=== PATIENT | female | born 1960 | race African-American/Black ===

== ENCOUNTER 2016-10-19 06:30 | Inpatient (IN) | payer MEDICAID ==
[2016-10-19] VITALS (14 sets, daily range): BP systolic 106–166; BP diastolic 57–82
[~2016-10-19] VITALS: Ht 170.2 cm; Wt 84.5 kg
[2016-10-19] MEDS ORDERED: METF500T4 PO (06:37)
[2016-10-19] MEDS ORDERED: AMLO-512 PO (06:37)
[2016-10-19] MEDS ORDERED: ASPI-556 PO (06:37)
[2016-10-19] MEDS ORDERED: IPRATROPIUM BROMIDE 0.5 MG/2.5 ML NEB SOLUTION NEB ONE (06:45)
[2016-10-19] MEDS ORDERED: ALBUTEROL SULFATE 2.5 MG/0.5 ML NEB SOLUTION NEB ONE (06:45)
[2016-10-19 06:47] LABS: GLUCOSE,POINT OF CARE 87 MG/DL (70-110)
[2016-10-19 07:57] LABS: GLUCOSE,POINT OF CARE 87 MG/DL (70-110)
[2016-10-19 08:09] LABS: ANION GAP 14 mmol/L (8-16); CALCIUM, TOTAL 8.7 mg/dL (8.8-10.5); CARBON DIOXIDE 24 mmol/L (22-29); CHLORIDE 104 mmol/L (98-107); GLOMERULAR FILTR. RATE CALC > 60 mL/min (>60); POTASSIUM 3.8 mmol/L (3.5-5.1); SODIUM SERUM 142 mmol/L (136-145); UREA NITROGEN, BLOOD 19 mg/dL (7-18)
[2016-10-19 08:16] LABS: ALANINE AMINOTRANSFERASE 11 U/L (12-78); ALBUMIN 2.7 g/dL (3.4-5.0); ASPARTATE AMINOTRANSFERASE 35 U/L (15-37); BILIRUBIN,TOTAL 0.6 mg/dL (0.1-1.0); CREATINE KINASE, TOTAL 28 U/L (26-192); TOTAL PROTEIN, SERUM 7.1 g/dL (6.4-8.2)
[2016-10-19 08:36] LABS: BASOPHILS # (AUTO) 0.01 K/uL (0.00-0.20); BASOPHILS % (AUTO) 0.2 % (0.0-2.0); EOSINOPHILS # (AUTO) 0.43 K/uL (0.00-0.70); EOSINOPHILS % (AUTO) 6.02 % (1.0-6.0); LYMPHOCYTES # (AUTO) 0.7 K/uL (1.0-4.8); LYMPHOCYTES % (AUTO) 9.6 % (22.0-44.0); MEAN CORPUSCULAR HEMOGLOBIN 40.2 pg (26.0-34.0); MEAN CORPUSCULAR HGB CONC 32.5 G/dL (31.0-37.0); MEAN CORPUSCULAR VOLUME 124 fL (80-100); MONOCYTES # (AUTO) 0.2 K/uL (0.1-1.0); NEUTROPHILS # (AUTO) 5.9 K/uL (1.8-7.7); NEUTROPHILS % (AUTO) 81.3 % (40.0-70.0); PLATELET COUNT (AUTO) 265 K/uL (150-450); RED BLOOD CELL COUNT(AUTO) 1.44 MIL/uL (4.00-5.20); RED CELL DISTRIBUTION WIDTH 24.6 % (11.5-14.5); WHITE BLOOD COUNT (AUTO) 7.2 K/uL (4.5-11.0)
[2016-10-19 08:40] LABS: B-TYPE NATRIURETIC PEPTIDE 36 pg/mL (0-100)
[2016-10-19 08:44] LABS: HEMOGLOBIN 5.8 g/dL (12.0-16.0)
[2016-10-19 08:45] LABS: HEMATOCRIT 17.8 % (36-46)
[2016-10-19 09:06] LABS: GLUCOSE,POINT OF CARE 129 MG/DL (70-110)
[2016-10-19 09:33] LABS: IRON, SERUM 97 mcg/dL (50-175); TOTAL IRON BINDING CAPACITY 227 mcg/dL (250-450)
[2016-10-19 09:49] LABS: FERRITIN 530 ng/mL (8-252)
[2016-10-19 10:33] LABS: VITAMIN B12 LEVEL 222 pg/mL (211-911)
[2016-10-19] MEDS ORDERED: SODIUM CHLORIDE 0.9% 250 ML IV ONE ×2 (10:49→14:27)
[2016-10-19] MEDS ORDERED: ACETAMINOPHEN 325 MG TABLET PO PRN (11:15)
[2016-10-19] MEDS ORDERED: BARIUM SULFATE 0.1% SUSPENSION 450 ML BOTTLE PO ONE (11:15)
[2016-10-19] MEDS ORDERED: ONDANSETRON HCL 4 MG/2 ML VIAL IVP PRN (11:15)
[2016-10-19] MEDS ORDERED: SODIUM CHLORIDE 0.9% 100 ML ONE (11:25)
[2016-10-19] MEDS ORDERED: IOVERSOL 350 MG/ML 150 ML VIAL ONE (11:26)
[2016-10-19] MEDS ORDERED: CYANOCOBALAMIN 1,000 MCG/ML VIAL SQ ONE (11:30)
[2016-10-19] MEDS ORDERED: FOLIC ACID 5 MG/ML 10 ML VIAL IVP ONE (11:30)
[2016-10-19] MEDS: PANTOPRAZOLE SODIUM 40 MG/VIAL IVP SCH ×2 (11:43→20:43)
[2016-10-19 12:22] LABS: GLUCOSE,POINT OF CARE 99 MG/DL (70-110)
[2016-10-19 14:21] LABS: PROTHROMBIN TIME 10.2 SEC (9.4-11.6)
[2016-10-19] MEDS ORDERED: HEPARIN SODIUM 25000 UNITS/D5W 250 ML IV PRN (17:27)
[2016-10-19] MEDS ORDERED: HEPARIN SODIUM,PORCINE 5,000 UNITS/ML VIAL IVP PRN ×3 (17:30→18:00)
[2016-10-19 17:53] LABS: BASOPHILS % (AUTO) 0.2 % (0.0-2.0); EOSINOPHILS % (AUTO) 6.4 % (1.0-6.0); HEMATOCRIT 21.2 % (36-46); HEMOGLOBIN 7.2 g/dL (12.0-16.0); LYMPHOCYTES # (AUTO) 0.9 K/uL (1.0-4.8); LYMPHOCYTES % (AUTO) 12.6 % (22.0-44.0); MEAN CORPUSCULAR HEMOGLOBIN 36.2 pg (26.0-34.0); MEAN CORPUSCULAR HGB CONC 33.8 G/dL (31.0-37.0); MEAN CORPUSCULAR VOLUME 107 fL (80-100); MONOCYTES # (AUTO) 0.3 K/uL (0.1-1.0); MONOCYTES % (AUTO) 3.6 % (2.0-9.0); NEUTROPHILS # (AUTO) 5.5 K/uL (1.8-7.7); NEUTROPHILS % (AUTO) 77.2 % (40.0-70.0); PLATELET COUNT (AUTO) 232 K/uL (150-450); RED BLOOD CELL COUNT(AUTO) 1.98 MIL/uL (4.00-5.20); RED CELL DISTRIBUTION WIDTH 30.5 % (11.5-14.5); WHITE BLOOD COUNT (AUTO) 7.1 K/uL (4.5-11.0)
[2016-10-19 18:04] LABS: PROTHROMBIN TIME 10.7 SEC (9.4-11.6)
[2016-10-19] MEDS: HEPARIN SODIUM 25000 UNITS/D5W 250 ML IV PRN (18:17)
[2016-10-19 18:21] LABS: RBC MORPHOLOGY COMMENT ABNORMAL RBC MORPH
[2016-10-19 20:21] LABS: ANION GAP 10 mmol/L (8-16); CALCIUM, TOTAL 8.4 mg/dL (8.8-10.5); CARBON DIOXIDE 24 mmol/L (22-29); CHLORIDE 102 mmol/L (98-107); CREATININE 1.11 mg/dL (0.60-1.30); GLOMERULAR FILTR. RATE CALC > 60 mL/min (>60); SODIUM SERUM 136 mmol/L (136-145); UREA NITROGEN, BLOOD 18 mg/dL (7-18)
[2016-10-19 20:27] LABS: ALANINE AMINOTRANSFERASE 12 U/L (12-78); ALBUMIN 2.5 g/dL (3.4-5.0); ASPARTATE AMINOTRANSFERASE 31 U/L (15-37); BILIRUBIN,TOTAL 0.8 mg/dL (0.1-1.0); TOTAL PROTEIN, SERUM 6.5 g/dL (6.4-8.2)
[2016-10-19] MEDS: NICOTINE 14 MG/24 HOUR PATCH TD SCH (20:28)
[2016-10-19 20:29] LABS: IRON, SERUM 183 mcg/dL (50-175); TOTAL IRON BINDING CAPACITY 187 mcg/dL (250-450)
[2016-10-19] MEDS: TIOTROPIUM BROMIDE 18 MCG/INH HANDIHALER [5] IH SCH (20:35)
[2016-10-19] MEDS: DOCUSATE SODIUM 100 MG CAPSULE PO SCH (20:43)
[2016-10-19] MEDS: BUDESONIDE 0.5 MG/2 ML NEB SOLUTION NEB SCH (21:12)
[2016-10-20] VITALS (10 sets, daily range): BP systolic 131–154; BP diastolic 65–87
[2016-10-20] MEDS: HEPARIN SODIUM,PORCINE 5,000 UNITS/ML VIAL IVP PRN ×2 (00:45→13:26)
[2016-10-20 05:31] LABS: BASOPHILS # (AUTO) 0.03 K/uL (0.00-0.20); BASOPHILS % (AUTO) 0.4 % (0.0-2.0); EOSINOPHILS % (AUTO) 8.52 % (1.0-6.0); HEMATOCRIT 21.4 % (36-46); HEMOGLOBIN 7.3 g/dL (12.0-16.0); LYMPHOCYTES # (AUTO) 0.9 K/uL (1.0-4.8); LYMPHOCYTES % (AUTO) 13.2 % (22.0-44.0); MEAN CORPUSCULAR HEMOGLOBIN 36.8 pg (26.0-34.0); MEAN CORPUSCULAR HGB CONC 34.1 G/dL (31.0-37.0); MEAN CORPUSCULAR VOLUME 108 fL (80-100); MONOCYTES # (AUTO) 0.3 K/uL (0.1-1.0); MONOCYTES % (AUTO) 3.5 % (2.0-9.0); NEUTROPHILS # (AUTO) 5.2 K/uL (1.8-7.7); NEUTROPHILS % (AUTO) 74.3 % (40.0-70.0); PLATELET COUNT (AUTO) 233 K/uL (150-450); RED BLOOD CELL COUNT(AUTO) 1.98 MIL/uL (4.00-5.20); RED CELL DISTRIBUTION WIDTH 30.8 % (11.5-14.5)
[2016-10-20 06:18] LABS: RBC MORPHOLOGY COMMENT ABNORMAL RBC MORPH
[2016-10-20] MEDS: TIOTROPIUM BROMIDE 18 MCG/INH HANDIHALER [5] IH SCH (08:16)
[2016-10-20] MEDS: DOCUSATE SODIUM 100 MG CAPSULE PO SCH ×2 (09:00→20:34)
[2016-10-20] MEDS: BUDESONIDE 0.5 MG/2 ML NEB SOLUTION NEB SCH ×3 (09:00→22:03)
[2016-10-20] MEDS: NICOTINE 14 MG/24 HOUR PATCH TD SCH (10:35)
[2016-10-20] MEDS: PANTOPRAZOLE SODIUM 40 MG/VIAL IVP SCH ×2 (10:35→20:35)
[2016-10-20] MEDS: HEPARIN SODIUM 25000 UNITS/D5W 250 ML IV PRN ×3 (10:47→18:34)
[2016-10-20] MEDS: FOLIC ACID 1 MG TABLET PO SCH (13:58)
[2016-10-20] MEDS ORDERED: GADOBUTROL 1 MMOL/ML 10 ML VIAL IVP ONE (14:56)
[2016-10-20] MEDS: OXYGEN THERAPY IH SCH (20:34)
[2016-10-21 00:30] VITALS: BP 142/69
[2016-10-21] MEDS: HEPARIN SODIUM 25000 UNITS/D5W 250 ML IV PRN (00:58)
[2016-10-21 04:46] VITALS: BP 136/76
[2016-10-21 06:38] LABS: BASOPHILS % (AUTO) 0.3 % (0.0-2.0); EOSINOPHILS % (AUTO) 6.4 % (1.0-6.0); HEMATOCRIT 21.6 % (36-46); HEMOGLOBIN 7.3 g/dL (12.0-16.0); LYMPHOCYTES % (AUTO) 12.4 % (22.0-44.0); MEAN CORPUSCULAR HEMOGLOBIN 36.2 pg (26.0-34.0); MEAN CORPUSCULAR HGB CONC 33.7 G/dL (31.0-37.0); MEAN CORPUSCULAR VOLUME 108 fL (80-100); MONOCYTES # (AUTO) 0.5 K/uL (0.1-1.0); MONOCYTES % (AUTO) 5.8 % (2.0-9.0); NEUTROPHILS # (AUTO) 5.9 K/uL (1.8-7.7); NEUTROPHILS % (AUTO) 75.1 % (40.0-70.0); PLATELET COUNT (AUTO) 217 K/uL (150-450); RED BLOOD CELL COUNT(AUTO) 2.01 MIL/uL (4.00-5.20); RED CELL DISTRIBUTION WIDTH 30.8 % (11.5-14.5); WHITE BLOOD COUNT (AUTO) 7.9 K/uL (4.5-11.0)
[2016-10-21 07:57] VITALS: BP 146/64
[2016-10-21] MEDS: BUDESONIDE 0.5 MG/2 ML NEB SOLUTION NEB SCH ×2 (08:20→20:26)
[2016-10-21] MEDS: OXYGEN THERAPY IH SCH ×2 (08:20→20:56)
[2016-10-21] MEDS: FERROUS SULFATE 325 MG EC TABLET PO SCH ×2 (08:46→18:21)
[2016-10-21] MEDS: PANTOPRAZOLE SODIUM 40 MG/VIAL IVP SCH ×2 (08:46→20:55)
[2016-10-21] MEDS: DOCUSATE SODIUM 100 MG CAPSULE PO SCH ×2 (08:47→20:55)
[2016-10-21] MEDS: APIXABAN 5 MG TABLET PO SCH ×2 (08:48→20:56)
[2016-10-21] MEDS: NICOTINE 14 MG/24 HOUR PATCH TD SCH (08:48)
[2016-10-21] MEDS: FOLIC ACID 1 MG TABLET PO SCH (08:48)
[2016-10-21] MEDS: TIOTROPIUM BROMIDE 18 MCG/INH HANDIHALER [5] IH SCH (09:40)
[2016-10-21 10:26] LABS: CARCINOEMBRYONIC AG 2.3 ng/mL (0.0-4.7)
[2016-10-21 11:26] VITALS: BP 121/64
[2016-10-21 11:45] LABS: RBC MORPHOLOGY COMMENT DIMORPHIC RBC
[2016-10-21 14:13] LABS: HEPATITIS Bs ANTIGEN SCREEN P Negative (Negative); HEPATITIS C AB SCREEN <0.1 s/co ratio (0.0-0.9)
[2016-10-21 15:08] VITALS: BP 119/62
[2016-10-21 19:22] VITALS: BP 136/61
[2016-10-21] MEDS ORDERED: 0.9% SODIUM CHLORIDE 5 ML NEB SOLUTION NEB ONE (20:16)
[2016-10-21] MEDS: ALBUTEROL SULFATE 2.5 MG/0.5 ML NEB SOLUTION NEB PRN (20:25)
[2016-10-22] VITALS (20 sets, daily range): BP systolic 118–153; BP diastolic 50–80
[2016-10-22 06:19] LABS: BASOPHILS % (AUTO) 0.2 % (0.0-2.0); EOSINOPHILS % (AUTO) 4.7 % (1.0-6.0); HEMATOCRIT 21.2 % (36-46); HEMOGLOBIN 7.3 g/dL (12.0-16.0); LYMPHOCYTES % (AUTO) 11.9 % (22.0-44.0); MEAN CORPUSCULAR HEMOGLOBIN 36.8 pg (26.0-34.0); MEAN CORPUSCULAR HGB CONC 34.5 G/dL (31.0-37.0); MEAN CORPUSCULAR VOLUME 106 fL (80-100); MONOCYTES # (AUTO) 0.6 K/uL (0.1-1.0); MONOCYTES % (AUTO) 6.8 % (2.0-9.0); NEUTROPHILS # (AUTO) 6.3 K/uL (1.8-7.7); NEUTROPHILS % (AUTO) 76.4 % (40.0-70.0); PLATELET COUNT (AUTO) 232 K/uL (150-450); RED BLOOD CELL COUNT(AUTO) 1.99 MIL/uL (4.00-5.20); RED CELL DISTRIBUTION WIDTH 30.7 % (11.5-14.5); WHITE BLOOD COUNT (AUTO) 8.3 K/uL (4.5-11.0)
[2016-10-22] MEDS ORDERED: 0.9% SODIUM CHLORIDE 5 ML NEB SOLUTION NEB ONE (08:19)
[2016-10-22] MEDS: BUDESONIDE 0.5 MG/2 ML NEB SOLUTION NEB SCH ×2 (08:35→19:49)
[2016-10-22] MEDS: DOCUSATE SODIUM 100 MG CAPSULE PO SCH ×2 (09:00→20:03)
[2016-10-22] MEDS: TIOTROPIUM BROMIDE 18 MCG/INH HANDIHALER [5] IH SCH (09:00)
[2016-10-22] MEDS: FOLIC ACID 1 MG TABLET PO SCH (09:00)
[2016-10-22] MEDS: FERROUS SULFATE 325 MG EC TABLET PO SCH ×2 (09:00→18:27)
[2016-10-22] MEDS: PANTOPRAZOLE SODIUM 40 MG/VIAL IVP SCH ×2 (09:00→20:03)
[2016-10-22] MEDS: APIXABAN 5 MG TABLET PO SCH ×2 (09:01→20:03)
[2016-10-22] MEDS: NICOTINE 14 MG/24 HOUR PATCH TD SCH (09:01)
[2016-10-22 10:14] LABS: RBC MORPHOLOGY COMMENT ABNORMAL RBC MORPH
[2016-10-22] MEDS: OXYGEN THERAPY IH SCH ×2 (10:43→21:19)
[2016-10-22] MEDS ORDERED: SODIUM CHLORIDE 0.9% 250 ML IV ONE (15:16)
[2016-10-22] MEDS: ALBUTEROL SULFATE 2.5 MG/0.5 ML NEB SOLUTION NEB PRN (19:49)
[2016-10-23 00:16] VITALS: BP 127/59
[2016-10-23 05:10] VITALS: BP 141/71
[2016-10-23 06:08] LABS: BASOPHILS % (AUTO) 0.3 % (0.0-2.0); HEMATOCRIT 29.4 % (36-46); LYMPHOCYTES # (AUTO) 0.8 K/uL (1.0-4.8); LYMPHOCYTES % (AUTO) 8.4 % (22.0-44.0); MEAN CORPUSCULAR HEMOGLOBIN 34.6 pg (26.0-34.0); MEAN CORPUSCULAR HGB CONC 34.2 G/dL (31.0-37.0); MEAN CORPUSCULAR VOLUME 101 fL (80-100); MONOCYTES # (AUTO) 0.7 K/uL (0.1-1.0); NEUTROPHILS # (AUTO) 7.9 K/uL (1.8-7.7); NEUTROPHILS % (AUTO) 80.3 % (40.0-70.0); PLATELET COUNT (AUTO) 253 K/uL (150-450); WHITE BLOOD COUNT (AUTO) 9.9 K/uL (4.5-11.0)
[2016-10-23 07:45] VITALS: BP 139/73
[2016-10-23 07:52] LABS: RBC MORPHOLOGY COMMENT DIMORPHIC RBC
[2016-10-23] MEDS: OXYGEN THERAPY IH SCH (08:00)
[2016-10-23] MEDS: BUDESONIDE 0.5 MG/2 ML NEB SOLUTION NEB SCH (08:14)
[2016-10-23] MEDS: FOLIC ACID 1 MG TABLET PO SCH (08:33)
[2016-10-23] MEDS: FERROUS SULFATE 325 MG EC TABLET PO SCH (08:33)
[2016-10-23] MEDS: DOCUSATE SODIUM 100 MG CAPSULE PO SCH (08:33)
[2016-10-23] MEDS: APIXABAN 5 MG TABLET PO SCH (08:35)
[2016-10-23] MEDS: NICOTINE 14 MG/24 HOUR PATCH TD SCH (08:36)
[2016-10-23] MEDS: PANTOPRAZOLE SODIUM 40 MG/VIAL IVP SCH (08:44)
[2016-10-23] MEDS: TIOTROPIUM BROMIDE 18 MCG/INH HANDIHALER [5] IH SCH (10:45)
[2016-10-23] MEDS ORDERED: APIX5TAB PO (10:54)
[2016-10-23] MEDS ORDERED: FOLI1TAB15 PO (10:55)
[2016-10-23] MEDS ORDERED: VITA-328 PO (10:56)
[2016-10-23] MEDS ORDERED: OMEP10SU PO (10:57)
[2016-10-23] MEDS ORDERED: FERR325C PO (10:58)
[2016-10-23] MEDS ORDERED: PNEUMOCOCCAL VACCINE POLYVALENT 0.5 ML VIAL [PPSV23] IM ONE (11:00)
== END 2016-10-23 11:30 | disposition home or self-care (01) | DRG 197 ==
LOC: EMS 06:32 → 5N 10-20 07:51
PROVIDERS: ADMIT Internal Medicine; ATTEND Internal Medicine
PROC: 30233N1 Transfusion of Nonautologous Red Blood Cells into Peripheral Vein, Percutaneous Approach (ICD-10-PCS; principal; 2016-10-20)
DX: I82.432 Acute embolism and thrombosis of left popliteal vein (principal); I26.99 Other pulmonary embolism without acute cor pulmonale; E43 Unspecified severe protein-calorie malnutrition; E53.8 Deficiency of other specified B group vitamins; J44.9 Chronic obstructive pulmonary disease, unspecified; E66.01 Morbid (severe) obesity due to excess calories; D52.9 Folate deficiency anemia, unspecified; E11.9 Type 2 diabetes mellitus without complications; I10 Essential (primary) hypertension; F10.20 Alcohol dependence, uncomplicated; E78.00 Pure hypercholesterolemia, unspecified; D25.9 Leiomyoma of uterus, unspecified; E78.5 Hyperlipidemia, unspecified; I25.10 Atherosclerotic heart disease of native coronary artery without angina pectoris; F17.210 Nicotine dependence, cigarettes, uncomplicated; I70.8 Atherosclerosis of other arteries; K64.9 Unspecified hemorrhoids; F32.9 Major depressive disorder, single episode, unspecified; R53.81 Other malaise; Z68.29 Body mass index [BMI] 29.0-29.9, adult; Z79.84 Long term (current) use of oral hypoglycemic drugs; Z79.82 Long term (current) use of aspirin; Z79.899 Other long term (current) drug therapy; Z71.6 Tobacco abuse counseling; Z80.3 Family history of malignant neoplasm of breast
CPT/HCPCS: 71020; 71260; 72193; 72197; 74160; 80074; 82105; 82378; 82607; 82728; 82746; 82962; 83540; 83550; 85045; 86301; 86304; 86850; 86900; 86901; 86920; 93005; 93970; 94060; 94640; 96372; 96374; 99291; A9585; C9113; J1644; J3420; J3490; J7050; P9016

== ENCOUNTER 2016-10-25 08:23 | Emergency (ER) | payer MEDICAID ==
[~2016-10-25] VITALS: Ht 170.2 cm; Wt 89.1 kg
[~2016-10-25 08:23] MED LIST: AMLO-512 PO; APIX5TAB PO; ASPI-556 PO; FERR325C PO; FOLI1TAB15 PO; METF500T4 PO; OMEP10SU PO; VITA-328 PO
[2016-10-25 08:32] LABS: GLUCOSE,POINT OF CARE 105 MG/DL (70-110)
[2016-10-25 09:13] LABS: EOSINOPHILS # (AUTO) 0.14 K/uL (0.00-0.70); EOSINOPHILS % (AUTO) 1.54 % (1.0-6.0); HEMATOCRIT 30.1 % (36-46); HEMOGLOBIN 9.9 g/dL (12.0-16.0); LYMPHOCYTES # (AUTO) 0.4 K/uL (1.0-4.8); LYMPHOCYTES % (AUTO) 4.4 % (22.0-44.0); MEAN CORPUSCULAR HEMOGLOBIN 33.5 pg (26.0-34.0); MEAN CORPUSCULAR VOLUME 102 fL (80-100); MONOCYTES # (AUTO) 0.7 K/uL (0.1-1.0); NEUTROPHILS # (AUTO) 7.9 K/uL (1.8-7.7); PLATELET COUNT (AUTO) 282 K/uL (150-450); RED BLOOD CELL COUNT(AUTO) 2.96 MIL/uL (4.00-5.20); WHITE BLOOD COUNT (AUTO) 9.1 K/uL (4.5-11.0)
[2016-10-25 09:14] LABS: NEUTROPHILS % (AUTO) 86.1 % (40.0-70.0)
[2016-10-25 09:27] LABS: ANION GAP 11 mmol/L (8-16); CALCIUM, TOTAL 8.9 mg/dL (8.8-10.5); CARBON DIOXIDE 24 mmol/L (22-29); CHLORIDE 100 mmol/L (98-107); CREATININE 1.07 mg/dL (0.60-1.30); GLOMERULAR FILTR. RATE CALC > 60 mL/min (>60); POTASSIUM 3.9 mmol/L (3.5-5.1); SODIUM SERUM 135 mmol/L (136-145); UREA NITROGEN, BLOOD 15 mg/dL (7-18)
[2016-10-25 09:31] LABS: ALANINE AMINOTRANSFERASE 9 U/L (12-78); ALBUMIN 2.6 g/dL (3.4-5.0); ASPARTATE AMINOTRANSFERASE 13 U/L (15-37); BILIRUBIN,TOTAL 1.1 mg/dL (0.1-1.0)
[2016-10-25 09:36] LABS: RBC MORPHOLOGY COMMENT DIMORPHIC RBC
[2016-10-25 10:47] VITALS: BP 141/72
== END 2016-10-25 11:40 | disposition home or self-care (01) ==
LOC: EMS 08:24
DX: N93.9 Abnormal uterine and vaginal bleeding, unspecified (principal); N95.0 Postmenopausal bleeding; I26.99 Other pulmonary embolism without acute cor pulmonale; D25.9 Leiomyoma of uterus, unspecified; E11.9 Type 2 diabetes mellitus without complications; E78.00 Pure hypercholesterolemia, unspecified; I10 Essential (primary) hypertension; J44.9 Chronic obstructive pulmonary disease, unspecified; F17.210 Nicotine dependence, cigarettes, uncomplicated; Z79.01 Long term (current) use of anticoagulants
CPT/HCPCS: 82962; 99291; 99406

== ENCOUNTER 2016-11-20 00:03 | Emergency (ER) | payer SELFPAY ==
[~2016-11-20] VITALS: Ht 170.2 cm; Wt 84.5 kg
[~2016-11-20 00:03] MED LIST changes: -AMLO-512 PO; -ASPI-556 PO; -METF500T4 PO
[2016-11-20 00:44] LABS: BASOPHILS % (AUTO) 0.1 % (0.0-2.0); EOSINOPHILS % (AUTO) 4.6 % (1.0-6.0); HEMATOCRIT 24.7 % (36-46); HEMOGLOBIN 8.2 g/dL (12.0-16.0); LYMPHOCYTES % (AUTO) 9.3 % (22.0-44.0); MEAN CORPUSCULAR HEMOGLOBIN 29.6 pg (26.0-34.0); MEAN CORPUSCULAR HGB CONC 33.3 G/dL (31.0-37.0); MEAN CORPUSCULAR VOLUME 89 fL (80-100); MONOCYTES # (AUTO) 0.8 K/uL (0.1-1.0); MONOCYTES % (AUTO) 7.3 % (2.0-9.0); NEUTROPHILS # (AUTO) 8.5 K/uL (1.8-7.7); NEUTROPHILS % (AUTO) 78.7 % (40.0-70.0); PLATELET COUNT (AUTO) 392 K/uL (150-450); RED BLOOD CELL COUNT(AUTO) 2.78 MIL/uL (4.00-5.20); RED CELL DISTRIBUTION WIDTH 19.8 % (11.5-14.5); WHITE BLOOD COUNT (AUTO) 10.8 K/uL (4.5-11.0)
[2016-11-20 00:50] LABS: ANION GAP 9 mmol/L (8-16); CALCIUM, TOTAL 9.8 mg/dL (8.8-10.5); CARBON DIOXIDE 29 mmol/L (22-29); CHLORIDE 102 mmol/L (98-107); CREATININE 1.01 mg/dL (0.60-1.30); GLOMERULAR FILTR. RATE CALC > 60 mL/min (>60); SODIUM SERUM 140 mmol/L (136-145); UREA NITROGEN, BLOOD 17 mg/dL (7-18)
[2016-11-20 00:56] LABS: ALANINE AMINOTRANSFERASE 11 U/L (12-78); ALBUMIN 2.8 g/dL (3.4-5.0); ASPARTATE AMINOTRANSFERASE 17 U/L (15-37); BILIRUBIN,TOTAL 0.4 mg/dL (0.1-1.0); TOTAL PROTEIN, SERUM 7.6 g/dL (6.4-8.2)
[2016-11-20 01:29] LABS: APPEARANCE,URINE CLOUDY (CLEAR); GLUCOSE, URINE (UA) NEGATIVE (NEGATIVE); KETONES,URINE NEGATIVE (NEGATIVE); LEUKOCYTE ESTERASE ,URINE MODERATE (NEGATIVE); OCCULT BLOOD,URINE NEGATIVE (NEGATIVE); PROTEIN,URINE NEGATIVE (NEGATIVE)
[2016-11-20 01:31] LABS: ADD UA MICROSCOPIC YES
[2016-11-20 01:48] LABS: RBC,URINE 0-2 /HPF (0-2); SQUAMOUS EPITHELIAL CELL,UR Few /LPF (None Seen)
[2016-11-20] MEDS ORDERED: HYDROCODONE/ACETAMINOPHEN 5-325 MG TABLET PO ONE (02:45)
[2016-11-20] MEDS ORDERED: DEXAMETHASONE SOD PHOS 4 MG/ML 5 ML VIAL IVP ONE (02:45)
[2016-11-20 04:00] VITALS: BP 157/95
== END 2016-11-20 04:23 | disposition home or self-care (01) ==
LOC: EMS 00:04
DX: M13.872 Other specified arthritis, left ankle and foot (principal); M13.871 Other specified arthritis, right ankle and foot; E11.9 Type 2 diabetes mellitus without complications; E78.00 Pure hypercholesterolemia, unspecified; J44.9 Chronic obstructive pulmonary disease, unspecified; I10 Essential (primary) hypertension; Z87.891 Personal history of nicotine dependence
CPT/HCPCS: 36415; 80053; 81001; 85025; 85651; 87077; 87086; 87186; 93005; 96374; 99285; J1100